=== PATIENT | male | born 1985 | race Caucasian/White ===

== ENCOUNTER 2016-10-20 07:52 | Emergency (ER) | payer BC ==
[~2016-10-20] VITALS: Ht 170.2 cm; Wt 76.6 kg
[2016-10-20 07:55] VITALS: BP 123/76
== END 2016-10-20 09:11 | disposition home or self-care (01) ==
LOC: ED 09:05
DX: S01.01XD Laceration without foreign body of scalp, subsequent encounter (principal)
CPT/HCPCS: 99281